=== PATIENT | female | born 2000 | race Two or more races ===

== ENCOUNTER 2020-05-01 10:55 | Emergency (ER) | payer OTHER, MEDICAID, SELFPAY ==
[2020-05-01 11:06] VITALS: PULSE 128; RESP 20; O2SAT 98; BMI 21.1
--- NOTE | 2020-05-01 11:36 | ED_ITS ---
HPI - Female Genitourinary General Chief complaint: Urogenital-Female Stated complaint: Vaginal pain Time Seen by Provider: 05/01/20 11:08 Source: patient Mode of arrival: ambulatory Limitations: no limitations History of Present Illness HPI Narrative: Patient tells me on April 19 she was seen by her OBGYN. She had a Pap smear and was tested for gonorrhea, chlamydia, HIV and syphilis. All of her testing was negative. The day after she noticed a lesion on her left labia. She had some mild discomfort. She has noticed over the past few days that she has had several other lesions located around the 1st lesion she noted. There is some discomfort. There is no burning. No vaginal discharge or vaginal pain or pelvic pain. No vomiting or diarrhea or urinary symptoms. Patient is sexually active 1 partner. She occasionally uses condoms. MD elicited complaint: genital rash Onset (ago): day(s) Location of symptoms: external genitalia Severity: mild Female Urogenital Radiation: Non-Radiating Vaginal discharge: none Vaginal bleeding: none Exacerbating factors: none Relieving factors: none Associated symptoms: denies other symptoms Treatment prior to arrival: none Sexual activity: Yes Patient : No Related Data Allergies Allergy/AdvReac Type Severity Reaction Status Date / Time No Known Allergies Allergy Unverified 02/25/20 17:23 [No Known Allergies*] Review of Systems Review of Systems: Yes all other systems are reviewed and are negative Constitutional: Constitutional: Reports no additional constitutional complaints, Denies body ache(s), Denies chills, Denies fever(s), Denies headache(s) and Denies weakness Eyes: Eyes: Reports no additional eye complaints and Denies change in vision ENT: Reports system reviewed and no additional complaints, except as documented, Denies dizziness, Denies headache(s), Denies nasal congestion, Denies nasal discharge and Denies neck pain Cardiovascular: Cardiovascular: Reports no additional cardiovascular complaints, Denies chest pain, Denies leg edema and Denies dyspnea Respiratory: Respiratory: Reports no additional respiratory complaints, Denies cough and Denies dyspnea Gastrointestinal: Gastrointestinal: Reports no additional gastrointestinal complaints, Denies abdominal pain, Denies diarrhea, Denies nausea and Denies vomiting Genitourinary: Genitourinary: Reports no additional female genitourinary complaints, Denies hematuria, Denies urinary frequency, Denies difficulty voiding, Denies genital pruritis, Reports genital lesions, Denies dysuria, Denies pelvic pain, Denies flank pain, Denies urinary incontinence, Denies urinary hesitancy, Denies urinary urgency, Denies vaginal discharge, Denies vaginal odor and Denies vaginal pruritus Musculoskeletal: Musculoskeletal: Reports no additional musculoskeletal complaints, Denies back pain, Denies arthralgias, Denies joint swelling, Denies neck pain, Denies numbness and Denies tingling Integumentary/Breasts: Skin/Breast: Reports system reviewed and no additional complaints, except as docu and Denies rash Neurologic: Reports system reviewed and no additional complaints, except as documented, Denies Abnormal speech present, Denies dizziness, Denies headache(s), Denies numbness, Denies tingling and Denies weakness PMFSH Past Medical History Attestation statement: The following information was validated with the patient. Source: obtained from family and nursing notes reviewed Social History Social History Advance Directives: No Advance Directives Information Provided: Yes Physical Exam Vital Signs: Vital Signs: Last Vital Signs Pulse 128 H 05/01/20 11:06 Resp 20 05/01/20 11:06 Pulse Ox 98 05/01/20 11:06 Body Mass Index 21.1 Const: General: cooperative and anxious ( Very anxious) Orientation/consciousness: patient oriented x3 Limitations: no limitations HENMT: Head: Yes normal to inspection Ears: hearing grossly normal bilaterally General nose exam: Normal external nose present Face and sinus: Yes normal facial exam Mouth: Normal oral and palatal mucosa present Throat: Yes posterior oropharynx normal Eyes: General: appearance normal, both eyes and all related structures Pupils: Equal, round and reactive pupils present Neck: Neck: Yes normal visual inspection Chest: Chest palpation & inspection: normal inspection of the chest Resp: Effort & Inspection: normal respiratory effort Auscultation: clear to auscultation bilaterally Cardio: Rate: regular rate Rhythm: regular rhythm Peripheral pulses: Peripheral pulses 2+ throughout GI: Inspection: Yes normal to inspection Palpation (GI): Soft to palpation and nontender Auscultation: normal bowel sounds : Other: Gris RN clinical business analyst present. Over the left labia majora there is a grouping of lesions whi are small, raised skin colored lesions which are very close together with some mild discomfort at the base Back/Spine/Pelvis: Thoracic/Lumbar Spine: thoracic and lumbar spine normal to inspection Skin: General skin exam: no rashes or lesions noted Neuro: General: patient oriented x3, no focal motor deficits and normal sensation to monofilament Cranial nerves: Yes Equal, round and reactive pupils present Cognition (Neuro): normal cognition Speech: No Abnormal speech present Gait exam (Neuro): Normal gait present Motor exam (neuro): 5/5 motor strength present throughout Extrem: General: Yes normal to inspection Course Course Course Narrative: Exam and HPI is not typical for HSV however patient has some discomfort over the lesions which is more concerning for HSV over genital warts. She was tested for syphilis/HIV/GC one day prior to when the first lesion was noted so I do not think it would be beneficial to re-test as the patient tells me she has not been sexually active since she noted the first lesion. HSV viral swab sent. Discussed with patient whether to treat prophylactically with antivirals or wait until test is resulted. Patient would like to wait and is aware we will call her with positive results and treatment may be started then. We discussed safe sex practices and follow-up with her MANAGER OF SOFTWARE outpatient. reviewed worrisome signs and symptoms and when to return to the emergency department. Comfortable discharge home. Discharge Plan Discharge Clinical Impression: Vaginal lesion Patient Disposition: Home, Self-Care Instructions: Normal Exam (ED) Additional Instructions: We have tested this lesion for herpes. We will have the results in 5-7 days and will call you. Do not have sex prior to this testing resulted. Motrin or tylenol for pain as needed Baths as discussed Interventions: ED Discharge Assessment Last Done: 05/01/20 11:58 Discharge Date/Time: 05/01/20 11:59
== END 2020-05-01 11:59 | disposition home or self-care (01) ==
PROVIDERS: Nurse Practitioner Family; Emergency Provider Emergency Medicine
DX: N76.0 Acute vaginitis (principal); Z20.2 Contact with and (suspected) exposure to infections with a predominantly sexual mode of transmission
CPT/HCPCS: 87255; 99283

== ENCOUNTER 2020-07-19 14:17 | Emergency (ER) | payer OTHER, MEDICAID, SELFPAY ==
[2020-07-19 14:18] VITALS: BP 130/70; PULSE 67; RESP 14; TEMP 36.8; O2SAT 99; BMI 21.1
--- NOTE | 2020-07-19 15:01 | PC.NURSE ---
A&0X3, AMBULATORY WITH STEADY GAIT, PT NOW STATES I THINK I HAVE A YEAST INFECTION BUT CAN I GET TESTED FOR EVERYTHING. RN ENCOURAGED PT TO SPEAK WITH PROVIDER RE: POC
[2020-07-19 15:26] LABS: Glucose Urine UA 100 MG/DL (NEG); Leukocyte Esterase Urine TRACE (NEG); Nitrite Urine NEG (NEG); PH 5.5 (5.0-8.0); Specific Gravity - Urine >= 1.030 (1.005-1.025); UACC Culture Trigger YES; Urine Blood 1+ (NEG); Urine Ketones 40 MG/DL (NEG); Urine Protein NEG (NEG-TRACE)
[2020-07-19 15:28] LABS: Appearance Urine CLEAR; Color Urine YELLOW
[2020-07-19 15:29] LABS: UPreg QC Valid YES; Urine Pregnancy NEGATIVE (NEGATIVE)
--- NOTE | 2020-07-19 15:32 | ED_ITS ---
HPI - Female Genitourinary General Chief complaint: Urogenital-Female Stated complaint: QUEST UTI Time Seen by Provider: 07/19/20 15:04 Source: patient Mode of arrival: ambulatory Limitations: no limitations History of Present Illness HPI Narrative: 20-year-old female here with complaints of thick white vaginal discharge with dysuria and urinary frequency x2 days. Also complaining of bilateral lower pelvic pain. No fevers, chills, nausea, vomiting. She is sexually active with one partner, uses condoms most of the time. MD elicited complaint: dysuria, UTI , vaginal discharge and pelvic pain Related Data Previous Rx's Medication Instructions Recorded valacyclovir [Valtrex] 1,000 mg PO BID #20 tab 05/05/20 fluconazole [Diflucan] 150 mg PO Q3D #2 tab 07/19/20 metronidazole [Flagyl] 500 mg PO BID #14 tab 07/19/20 Allergies Allergy/AdvReac Type Severity Reaction Status Date / Time No Known Allergies Allergy Verified 07/19/20 14:21 [No Known Allergies*] Review of Systems Review of Systems: Yes all other systems are reviewed and are negative Constitutional: Constitutional: Reports no additional constitutional complaints, Denies body ache(s), Denies chills, Denies fever(s), Denies headache (s) and Denies weakness Eyes: Eyes: Reports no additional eye complaints and Denies change in vision ENT: Reports system reviewed and no additional complaints, except as documented, Denies dizziness, Denies headache(s), Denies nasal congestion, Denies nasal discharge and Denies neck pain Cardiovascular: Cardiovascular: Reports no additional cardiovascular complaints, Denies chest pain, Denies leg edema and Denies dyspnea Respiratory: Respiratory: Reports no additional respiratory complaints, Denies cough and Denies dyspnea Gastrointestinal: Gastrointestinal: Reports no additional gastrointestinal complaints, Denies abdominal pain, Denies diarrhea, Denies nausea and Denies vomiting Genitourinary: Genitourinary: Reports no additional female genitourinary complaints, Reports dysuria, Reports pelvic pain, Denies urinary incontinence and Reports vaginal discharge Comments: Frequency Musculoskeletal: Musculoskeletal: Reports no additional musculoskeletal complaints, Denies back pain, Denies arthralgias, Denies joint swelling, Denies neck pain, Denies numbness and Denies tingling Integumentary/Breasts: Skin/Breast: Reports system reviewed and no additional complaints, except as docu and Denies rash Neurologic: Reports system reviewed and no additional complaints, except as documented, Denies Abnormal speech present, Denies dizziness, Denies headache(s), Denies numbness, Denies tingling and Denies weakness PMFSH Past Medical History Attestation statement: The following information was validated with the patient. Source: old records reviewed and nursing notes reviewed Social History Social History Advance Directives: No Advance Directives Information Provided: No Physical Exam Vital Signs: Vital Signs: Last Vital Signs Temp 98.3 F 07/19/20 14:18 Pulse 67 07/19/20 14:18 Resp 14 07/19/20 14:18 BP 130/70 07/19/20 14:18 Pulse Ox 99 07/19/20 14:18 Body Mass Index 21.1 Const: General: cooperative, healthy appearing, comfortable and no acute distress Orientation/consciousness: patient oriented x3 Limitations: no limitations HENMT: Head: Yes normal to inspection Ears: hearing grossly normal bilaterally General nose exam: Normal external nose present Face and sinus: Yes normal facial exam Mouth: Normal oral and palatal mucosa present Throat: Yes posterior oropharynx normal Eyes: General: appearance normal, both eyes and all related structures Pupils: Equal, round and reactive pupils present Neck: Neck: Yes normal visual inspection Chest: Chest palpation & inspection: normal inspection of the chest Resp: Effort & Inspection: normal respiratory effort Auscultation: clear to auscultation bilaterally Cardio: Rate: regular rate Rhythm: regular rhythm Peripheral pulses: Peripheral pulses 2+ throughout GI: Inspection: Yes normal to inspection Palpation (GI): Soft to palpation and nontender Auscultation: normal bowel sounds : Other: najma RN [employer] present External Female Exam: normal external appearance Speculum Exam - Vagina: abnormal vaginal discharge (thick, white) malodorous Speculum Exam - Cervix: normal appearance of the cervix and normal palpation Bimanual exam- vagina & uterus: normal bimanual exam and normal palpation Bimanual Exam- Adnexa, other: normal adnexae Back/Spine/Pelvis: Thoracic/Lumbar Spine: thoracic and lumbar spine normal to inspection Skin: General skin exam: no rashes or lesions noted Neuro: General: patient oriented x3, no focal motor deficits and normal sensation to monofilament Cranial nerves: Yes Equal, round and reactive pupils present Cognition (Neuro): normal cognition Speech: No Abnormal speech present Gait exam (Neuro): Normal gait present Motor exam (neuro): 5/5 motor strength present throughout Extrem: General: Yes normal to inspection Course Course Course Narrative: 20-year-old female here with urinary symptoms and vaginal discharge with reports of pelvic discomfort for the last 2 days. UA is negative for UTI. Pelvic exam is more consistent with bacterial vaginosis. No CMT or adnexal tenderness on exam. Abdomen soft and nontender. Patient would like to be tested for STDS but is not concerned about this. She believes she has a yeast infection. Treated presumptively with ceftriaxone IM. Will hold on doxycycline until further cultures return. Will send home with Meagan Able. Reviewed worrisome signs and symptoms and when to return to the emergency department. Comfortable discharge home. MDM - Female Genitourinary Medical Records Attestation: I reviewed the patient's medical records. Lab Data Attestation: I reviewed the patient's lab results. Labs: Lab Results 07/19/20 Range/Units 15:16 Urine Color YELLOW Urine Appearance CLEAR Urine pH 5.5 (5.0-8.0) Ur Specific [place] >= 1.030 H (1.005-1.025) Urine Protein NEG (NEG-TRACE) MG/DL Urine Glucose (UA) 100 H (NEG) MG/DL Urine Ketones 40 (NEG) MG/DL Urine Blood 1+ H (NEG) Urine Nitrite NEG (NEG) Ur Leukocyte Esterase TRACE H (NEG) Urine RBC 1-4 (0) /HPF Urine WBC 0-2 (0-4) /HPF Ur Squamous Epith Cells 2+ /LPF Urine Bacteria 1+ /LPF Urine Test NEGATIVE (NEGATIVE) Discharge Plan Discharge Clinical Impression: Bacterial vaginosis, Concern about STD in female without diagnosis Patient Disposition: Home, Self-Care Instructions: Bacterial Vaginosis (ED), Sexually Transmitted Diseases (ED) Additional Instructions: We have tested due for STDs. We will call you with the results of your STD testing as well as the results of your other swabs tomorrow if you are positive. We are treating you for presumed bacterial vaginosis. I have also prescribed dose of medication for yeast infection. Prescriptions: New metronidazole [Flagyl] 500 mg tablet 500 mg PO BID Qty: 14 RF: 0 fluconazole [Diflucan] 150 mg tablet 150 mg PO Q3D Qty: 2 RF: 0 No Action valacyclovir [Valtrex] 1 gram tablet 1,000 mg PO BID Qty: 20 RF: 0 Referrals: Physician,Unknown [Primary Care Provider] - 2 days Interventions: ED Discharge Assessment Last Done: 07/19/20 16:29 Discharge Date/Time: 07/19/20 16:30
[2020-07-19 15:35] LABS: Bacteria Urine 1+ /LPF; Squamous Epithelial Cell Urine 2+ /LPF; UACC CULT YES; WBC Urine 0-2 /HPF (0-4)
[2020-07-19] MEDS: metroNIDAZOLE 500 MG TABLET PO (16:17)
[2020-07-19] MEDS: cefTRIAXone sodium 500 MG, Lidocaine HCl 1 % MPF 1 ML IM (16:19)
[2020-07-20 09:56] LABS: BV Int Neg Control Negative (Negative); BV Int Pos Control Positive (Positive)
[2020-07-21 12:46] LABS: C. trachomatis RNA TMA NOT DETECTED (NOT DETECTED); N. gonorrhoeae RNA TMA NOT DETECTED (NOT DETECTED)
== END 2020-07-19 16:30 | disposition home or self-care (01) ==
PROVIDERS: Nurse Practitioner Family; Emergency Provider Emergency Medicine Emergency Medical Services
DX: N76.0 Acute vaginitis (principal); R30.0 Dysuria; Z20.2 Contact with and (suspected) exposure to infections with a predominantly sexual mode of transmission; Z79.899 Other long term (current) drug therapy
CPT/HCPCS: 36415; 81001; 81025; 87086; 87480; 87491; 87510; 87591; 87660; 96372; 99283; 99284; J0696

== ENCOUNTER 2021-01-31 08:13 | Emergency (ER) | payer OTHER, MEDICAID, SELFPAY ==
[2021-01-31 09:42] VITALS: BP 119/86; PULSE 70; RESP 16; TEMP 36.6; O2SAT 100; BMI 19.7
--- NOTE | 2021-01-31 10:05 | ED.GENADULT ---
HPI - General Adult General Chief complaint: General Medical Stated complaint: burn lt ankle, multiple complaints Time Seen by Provider: 01/31/21 10:03 History of Present Illness HPI narrative: Patient with 2 complaints First complaint is of burn to the right inner lower leg Other complaint is intermittent vaginal bleeding for 2 and half weeks from 1-4 pads a day, with intermittent crampy pain, no dizziness no weakness no abdominal pain now Related Data Previous Rx's Medication Instructions Recorded valacyclovir 1 gram tablet 1,000 mg PO BID #20 tab 05/05/20 (Valtrex) fluconazole 150 mg tablet 150 mg PO Q3D #2 tab 07/19/20 (Diflucan) metronidazole 500 mg tablet 500 mg PO BID #14 tab 07/19/20 (Flagyl) ibuprofen 600 mg tablet 600 mg PO Q6H PRN #20 tab 01/31/21 silver sulfadiazine 1 % topical 1 appl TOPICAL BID 7 Days #50 g 01/31/21 cream (Silvadene) Allergies Allergy/AdvReac Type Severity Reaction Status Date / Time No Known Allergies Allergy Verified 07/19/20 14:21 [No Known Allergies*] Review of Systems Review of Systems: Positive for vaginal bleeding as well as a burn to the right lower leg Negatives are no fever no chills no dizziness weakness no fainting no feeling faint no headache no neck pain no chest pain no shortness of breath no abdominal pain no nausea vomiting or diarrhea, no other bleeding no skin rashes Yes all other systems are reviewed and are negative PMF Past Medical History Source: nursing notes reviewed Medical History (Updated 01/31/21 @ 12:11 by MATTEO Conti) No known health problems Social History Social History Advance Directives: Yes Advance Directives Information Provided: Yes Advance Directives on File: No Patient : No Physical Exam Vital Signs: Vital Signs: Last Vital Signs Temp 97.8 F 01/31/21 11:51 Pulse 71 01/31/21 11:51 Resp 16 01/31/21 11:51 BP 103/59 L 01/31/21 11:51 Pulse Ox 99 01/31/21 11:51 Body Mass Index 19.7 General appearance is no acute distress Head is normocephalic atraumatic The eyes no pallor Neck is supple Chest no respiratory distress Abdomen is soft nontender no rebound no guarding Back no CVA tenderness Extremities left inner lower leg has a 2 cm tightness 2 cm patch of mixed 1st and second-degree burn, there is no deeper burn, there is full range of motion in knee and ankle and she is walking easily, there is no surrounding redness or tenderness or swelling, there is no discharge from the were Skin no petechiae no purpura Course Course Course Narrative: Lab testing did not show any anemia, hemoglobin was 13 and he hematocrit was 39, test was negative, urinalysis was negative, patient is well-appearing and will follow for vaginal bleeding with blind installer For the burn antibiotic cream is applied, there was no sign of infection and she will return any time if worse Medical Decision Making Lab Data Result diagrams: 01/31/21 10:18 Labs: Lab Results 01/31/21 01/31/21 01/31/21 Range/Units 10:15 10:15 10:18 WBC (4.8-10.8) X10*3/uL RBC (4.20-5.50) X10*6/uL Hgb (12.0-16.0) g/dl Hct (37-47) % MCV (80-98) fL MCH (27.0-33.0) pg MCHC (31.0-35.0) g/dl RDW (11.0-16.0) % Plt Count (160-400) X10*3/uL MPV (9.4-12.3) fL Immature Gran % (Auto) (0.0-0.4) % Neut % (Auto) (45-73) % Lymph % (Auto) (20-40) % [place] % (Auto) (2-11) % Eos % (Auto) (0-4) % Baso % (Auto) (0-2) % Lymph # (Auto) (1.2-4.9) X10*3/uL [place] # (Auto) (0.1-1.2) X10*3/uL Eos # (Auto) (0.0-0.4) X10*3/uL Baso # (Auto) (0.0-0.2) X10*3/uL Abs Immat Gran (auto) (0.00-0.03) X10*3/uL Absolute Neuts (auto) (2.0-8.3) X10*3/uL Absolute Nucleated RBC (0.0-0.012) X10*3/uL Nucleated RBC % (auto) (0.0-0.2) /100WBC Smear Tech's Comments Beta HCG, Quant < 2 mIU/mL Urine Color YELLOW Urine Appearance CLEAR Urine pH 6.5 (5.0-8.0) Ur Specific [place] 1.025 (1.005-1.025) Urine Protein NEG (NEG-TRACE) MG/DL Urine Glucose (UA) NEG (NEG) MG/DL Urine Ketones NEG (NEG) MG/DL Urine Blood 1+ H (NEG) Urine Nitrite NEG (NEG) Ur Leukocyte Esterase NEG (NEG) Urine RBC 0-2 (0) /HPF Urine WBC 0-2 (0-4) /HPF Ur Squamous Epith Cells 1+ /LPF Urine Bacteria NONE /LPF Urine Mucus TRACE /LPF Urine Test NEGATIVE (NEGATIVE) 01/31/21 Range/Units 10:18 WBC 13.3 H (4.8-10.8) X10*3/uL RBC 4.14 L (4.20-5.50) X10*6/uL Hgb 13.0 (12.0-16.0) g/dl Hct 39.8 (37-47) % MCV 96.1 (80-98) fL MCH 31.4 (27.0-33.0) pg MCHC 32.7 (31.0-35.0) g/dl RDW 13.2 (11.0-16.0) % Plt Count 221 (160-400) X10*3/uL MPV 11.3 (9.4-12.3) fL Immature Gran % (Auto) 0.3 (0.0-0.4) % Neut % (Auto) 68.4 (45-73) % Lymph % (Auto) 18.6 L (20-40) % [place] % (Auto) 12.0 H (2-11) % Eos % (Auto) 0.5 (0-4) % Baso % (Auto) 0.2 (0-2) % Lymph # (Auto) 2.5 (1.2-4.9) X10*3/uL [place] # (Auto) 1.6 H (0.1-1.2) X10*3/uL Eos # (Auto) 0.1 (0.0-0.4) X10*3/uL Baso # (Auto) 0.0 (0.0-0.2) X10*3/uL Abs Immat Gran (auto) 0.04 H (0.00-0.03) X10*3/uL Absolute Neuts (auto) 9.1 H (2.0-8.3) X10*3/uL Absolute Nucleated RBC 0.000 (0.0-0.012) X10*3/uL Nucleated RBC % (auto) 0.0 (0.0-0.2) /100WBC Smear Tech's Comments VERIFIED Beta HCG, Quant mIU/mL Urine Color Urine Appearance Urine pH (5.0-8.0) Ur Specific [place] (1.005-1.025) Urine Protein (NEG-TRACE) MG/DL Urine Glucose (UA) (NEG) MG/DL Urine Ketones (NEG) MG/DL Urine Blood (NEG) Urine Nitrite (NEG) Ur Leukocyte Esterase (NEG) Urine RBC (0) /HPF Urine WBC (0-4) /HPF Ur Squamous Epith Cells /LPF Urine Bacteria /LPF Urine Mucus /LPF Urine Test (NEGATIVE) Discharge Plan Discharge Clinical Impression: Vaginal bleeding, Burn Patient Disposition: Home, Self-Care Additional Instructions: Are testing did not show any anemia or any dangerous blood loss Follow with blind installer for further evaluation of irregular vaginal bleeding Return any time for dizziness weakness pain any worse condition or any concerns For the burn on the leg apply antibiotic ointment twice a day, it does not look infected now and it should heal up on its own Return any time for increased pain, spreading redness, any sign of infection any concerns You got a tetanus shot today Prescriptions: New silver sulfadiazine [Silvadene] 1 % cream 1 appl topical BID 7 Days Qty: 50 RF: 0 ibuprofen 600 mg tablet 600 mg PO Q6H PRN (Reason: pain) Qty: 20 RF: 0 No Action valacyclovir [Valtrex] 1 gram tablet 1,000 mg PO BID Qty: 20 RF: 0 metronidazole [Flagyl] 500 mg tablet 500 mg PO BID Qty: 14 RF: 0 fluconazole [Diflucan] 150 mg tablet 150 mg PO Q3D Qty: 2 RF: 0 Referrals: Harshal Dwyer MD [Physician] - 2 days (Irregular bleeding) Stand Alone Forms: Work/School Release
[2021-01-31 10:39] LABS: Basophils Percent Auto 0.2 % (0-2); Eosinophils Absolute Auto 0.1 X10*3/uL (0.0-0.4); Eosinophils Percent Auto 0.5 % (0-4); Hematocrit 39.8 % (37-47); Imm Gran Abs Auto 0.04 X10*3/uL (0.00-0.03); Imm Gran Pct Auto 0.3 % (0.0-0.4); Lymphocytes Absolute Auto 2.5 X10*3/uL (1.2-4.9); Lymphocytes Percent Auto 18.6 % (20-40); MANUAL DIFF FLAG SCAN; Mean Corpuscular HGB Conc 32.7 g/dl (31.0-35.0); Mean Corpuscular Hemoglobin 31.4 pg (27.0-33.0); Mean Corpuscular Volume 96.1 fL (80-98); Mean Platelet Volume 11.3 fL (9.4-12.3); Monocytes Absolute Auto 1.6 X10*3/uL (0.1-1.2); Neutrophils Absolute Auto 9.1 X10*3/uL (2.0-8.3); Neutrophils Percent Auto 68.4 % (45-73); Platelet Count 221 X10*3/uL (160-400); Red Blood Count 4.14 X10*6/uL (4.20-5.50); Red Cell Distribution Width 13.2 % (11.0-16.0); SCAN SMEAR FLAG 1; White Blood Count 13.3 X10*3/uL (4.8-10.8)
[2021-01-31] MEDS: Silver Sulfadiazine 1 % Cream 20 GM TUBE 1 APPL TOPICAL (10:41)
[2021-01-31] MEDS: Diphth,Pertus(ACell),Tet Adult 0.5 ML SYRINGE IM (10:41)
[2021-01-31 10:59] LABS: Glucose Urine UA NEG (NEG); Leukocyte Esterase Urine NEG (NEG); Nitrite Urine NEG (NEG); PH 6.5 (5.0-8.0); Specific Gravity - Urine 1.025 (1.005-1.025); UACC Culture Trigger NO; Urine Blood 1+ (NEG); Urine Ketones NEG (NEG); Urine Protein NEG (NEG-TRACE)
[2021-01-31 10:59] LABS: HCG Quantitative < 2 mIU/mL
[2021-01-31 11:02] LABS: Appearance Urine CLEAR; Color Urine YELLOW; UPreg QC Valid YES; Urine Pregnancy NEGATIVE (NEGATIVE)
[2021-01-31 11:15] LABS: SLIDE REVIEW VERIFIED
[2021-01-31 11:20] LABS: Mucus Urine TRACE /LPF; RBC Urine 0-2 /HPF (0); Squamous Epithelial Cell Urine 1+ /LPF; WBC Urine 0-2 /HPF (0-4)
[2021-01-31 11:51] VITALS: BP 103/59; PULSE 71; RESP 16; TEMP 36.6; O2SAT 99
[2021-01-31 13:49] LABS: CT PCR DETECTED (Not Detect.); NG PCR NOT DETECTED (Not Detect.)
== END 2021-01-31 12:24 | disposition home or self-care (01) ==
PROVIDERS: Physician Assistant Medical; Emergency Provider Emergency Medicine
DX: T24.202A Burn of second degree of unspecified site of left lower limb, except ankle and foot, initial encounter (principal); T31.0 Burns involving less than 10% of body surface; N93.9 Abnormal uterine and vaginal bleeding, unspecified; A74.9 Chlamydial infection, unspecified
CPT/HCPCS: 17250; 36415; 81001; 81003; 81025; 84702; 85025; 87491; 87591; 90471; 90715; 99284

== ENCOUNTER 2021-02-14 13:38 | Outpatient (REF) | payer MEDICAID, SELFPAY | END 2021-02-14 13:39 | disposition home or self-care (01) | LOC: HO.LAB 13:38 | PROVIDERS: Visit Provider Internal Medicine | DX: Z20.822 Contact with and (suspected) exposure to COVID-19 (principal) | CPT/HCPCS: C9803; U0003; U0005 ==

== ENCOUNTER 2022-01-05 09:09 | Emergency (ER) | payer MEDICAID, SELFPAY ==
[2022-01-05 09:31] VITALS: BP 118/79; PULSE 86; RESP 18; TEMP 36.8; O2SAT 100; BMI 21.1
--- NOTE | 2022-01-05 11:45 | ED.WOUNDLAC ---
HPI - Wound/Laceration General Chief Complaint: Wound/Laceration Stated Complaint: lac. on knee Time Seen by Provider: 01/05/22 10:47 History of Present Illness HPI narrative: Patient complains of laceration to her right knee after falling 10 hours ago while running, there is no joint swelling there is no difficulty walking although she is limping a little bit, no other injury no other complaint Related Data Previous Rx's Medication Instructions Recorded valacyclovir 1 gram tablet 1,000 mg PO BID #20 tabs 05/05/20 (Valtrex) fluconazole 150 mg tablet 150 mg PO Q3D 2 doses #2 tabs 07/19/20 (Diflucan) metronidazole 500 mg tablet 500 mg PO BID #14 tabs 07/19/20 (Flagyl) ibuprofen 600 mg tablet 600 mg PO Q6H PRN pain #20 tabs 01/31/21 silver sulfadiazine 1 % topical 1 appl topical BID 7 days #50 grams 01/31/21 cream (Silvadene) doxycycline hyclate 100 mg capsule 100 mg PO BID 7 days #14 caps 02/02/21 Allergies Allergy/AdvReac Type Severity Reaction Status Date / Time No Known Allergies Allergy Verified 07/19/20 14:21 [No Known Allergies*] Review of Systems Review of Systems: Positive for right knee laceration Negatives are no fever no chills no dizziness no weakness no fainting no feeling faint no headache no neck pain no back pain no chest pain no rib pain no other extremity pain or injury Yes all other systems are reviewed and are negative PMFSH Past Medical History Source: nursing notes reviewed Medical History (Updated 01/06/22 @ 00:02 by Eduarda Weaver) No known health problems Social History Social History Advance Directives: No Advance Directives Information Provided: No Physical Exam Vital Signs: Vital Signs: Last Vital Signs Temp 98.3 F 01/05/22 09:31 Pulse 86 01/05/22 09:31 Resp 18 01/05/22 09:31 BP 118/79 01/05/22 09:31 Pulse Ox 100 01/05/22 09:31 O2 Del Method 01/05/22 09:31 BMI result Body Mass Index 21.1 General appearance no distress Head is normocephalic atraumatic Neck is supple nontender Respiratory no distress The back full range of motion Extremities full range of motion x4 including right knee which has a 2.5 cm laceration anterior, there is full range of motion no swelling, no surrounding erythema, neurovascular intact distal, other extremities normal Course Course Course Narrative: Procedure note 2.5 cm right knee laceration is cleansed and irrigated with normal saline, no foreign body identified, 4-0 nylon sutures were placed, wound was closed and bandage was applied Discharge Plan Discharge Clinical Impression: Laceration Patient Disposition: Home, Self-Care Additional Instructions: Stitches out in 7-10 days You can do this at your primary care doctor or return to the ER as needed Return any time for redness swelling any sign of infection any concerns Prescriptions: No Action valacyclovir [Valtrex] 1 gram tablet 1,000 mg PO BID Qty: 20 0RF metronidazole [Flagyl] 500 mg tablet 500 mg PO BID Qty: 14 0RF fluconazole [Diflucan] 150 mg tablet 150 mg PO Q3D Qty: 2 0RF silver sulfadiazine [Silvadene] 1 % cream 1 appl topical BID 7 Days Qty: 50 0RF Rx Instructions: apply a 1.5 mm thickness ibuprofen 600 mg tablet 600 mg PO Q6H PRN (Reason: pain) Qty: 20 0RF doxycycline hyclate 100 mg capsule 100 mg PO BID 7 Days Qty: 14 0RF Interventions: ED Discharge Assessment Last Done: 01/05/22 11:52 Discharge Date/Time: 01/05/22 11:54
[2022-01-05] MEDS: Lidocaine HCl 1 % MPF 5 ML VIAL SUBCUT ×2 (11:52)
== END 2022-01-05 11:54 | disposition home or self-care (01) ==
PROVIDERS: Emergency Provider Student in an Organized Health Care Education/Training Program
DX: S81.011A Laceration without foreign body, right knee, initial encounter (principal); W01.0XXA Fall on same level from slipping, tripping and stumbling without subsequent striking against object, initial encounter; Y93.02 Activity, running; Y92.481 Parking lot as the place of occurrence of the external cause; Y99.9 Unspecified external cause status
CPT/HCPCS: 12001; 99282; 99284

== ENCOUNTER 2022-01-17 15:25 | Emergency (ER) | payer MEDICAID, SELFPAY | END 2022-01-17 18:24 | disposition left against medical advice (07) | PROVIDERS: Emergency Provider Emergency Medicine | DX: Z48.02 Encounter for removal of sutures (principal) ==

== ENCOUNTER 2023-02-27 08:05 | Outpatient (REF) | payer MEDICAID, SELFPAY ==
[2023-02-28 17:49] LABS: CT PCR NOT DETECTED (Not Detect.); NG PCR NOT DETECTED (Not Detect.)
[2023-03-01 14:15] LABS: BV Int Neg Control Negative (Negative); BV Int Pos Control Positive (Positive)
== END 2023-02-27 08:06 | disposition home or self-care (01) ==
LOC: HO.HHCLNP 08:05
PROVIDERS: Visit Provider Registered Nurse
DX: N89.8 Other specified noninflammatory disorders of vagina (principal)
CPT/HCPCS: 0353U; 87086; 87480; 87510; 87660

== ENCOUNTER 2024-12-01 07:05 | Emergency (ER) | payer MEDICAID, SELFPAY ==
--- NOTE | ~2024-12-01 | US_ITS ---
EXAMINATION: US PELVIS HISTORY: pelvic pain, recent IUD placement COMPARISON: Comparison is made with the prior examination dated 06/20/2017. TECHNIQUE: Transabdominal real-time 2D bailey-scale ultrasound was performed. The patient declined endovaginal examination. FINDINGS: Uterus: The uterus is normal in size, measuring 8.4 x 4.5 x 6.0 cm. Myometrium has a normal echotexture. No fibroids are identified. Endometrium: The endometrial stripe is obscured by the presence of an IUD which appears in appropriate position. Right ovary: The right ovary measures 4.7 x 3.3 x 3.5 cm. There is a 3.0 x 3.1 x 2.7 cm right ovarian cyst. Left ovary: The left ovary measures 2.7 x 2.0 x 2.6 cm. The left ovary is normal in size and echotexture. Pelvic fluid: none. US/US pelvic complete IMPRESSION: 1. IUD in appropriate position in the endometrial cavity. 2. 3.0 x 3.1 x 2.7 cm right ovarian cyst. Electronically signed by: Jose Duque MD 12/01/2024 10:14 AM EDT
--- NOTE | 2024-12-01 07:55 | ED_ITS ---
HPI - General Adult General Chief complaint: Abdominal Pain Stated complaint: iud rejection Time Seen by Provider: 12/01/24 07:55 History of Present Illness ED Provider: Terri ROSE narrative: The patient is a 24-year-old female who [facility] She says that she had significant discomfort for 2 or 3 days after placement of the device. She also says that she has had ongoing vaginal bleeding since the device. She has had 2 menstrual periods since the placement of the device and she has found them more uncomfortable than usual. She says that she stopped having any vaginal bleeding 2 or 3 days ago but has had significant worsening cramping in her pelvis over the last 2 or 3 days instead. She comes to the emergency room today because of this worsening cramping. She has a sensation that her body is rejecting the device. No fevers. Related Data Previous Rx's ?Medication ?Instructions ?Recorded valacyclovir 1 gram tablet 1,000 mg PO BID #20 tabs (Valtrex) fluconazole 150 mg tablet 150 mg PO Q3D 2 doses #2 tab s 07/19/20 (Diflucan) metronidazole 500 mg tablet 500 mg PO BID #14 tabs 02/28 (Flagyl) ibuprofen 600 mg tablet 600 mg PO Q6H PRN pain #20 t abs 01/31/21 silver sulfadiazine 1 % topical 1 appl topical BID 7 d ays #50 grams 01/31/21 cream (Silvadene) doxycycline hyclate 100 mg capsule 100 mg PO BID 7 day s #14 caps 02/02/21 acetaminophen 500 mg capsule 1,000 mg (2 x 500 mg) PO Q8H PRN 12/01/24 fever or pain #14 caps ibuprofen 400 mg tablet 400 mg PO Q6H PRN pain #14 t abs 12/01/24 Allergies Allergy/AdvReac Type Severity Reaction Status Date / Time No Known Allergies (No Known Allergy Verified 12/01/24 08:16 Allergies*) Review of Systems 2 Review of Systems: Yes all other systems are reviewed and are negative [facility] Past Medical History Medical History (Updated 12/02/24 @ 00:01 by Eduarda Weaver) No known health problems Social History Social History Smoked in Last 30 Days: No Use of substances other than those prescribed or required for medical reasons: Yes Substance Use Type: Marijuana Advance Directives: No Advance Directives Information Provided: No Patient : No Physical Exam ED Vital Signs: Vital Signs - 24 hr 12/01/24 08:09 Temperature 98.1 F Pulse Rate 65 Respiratory Rate 16 Pulse Oximetry 100 Oxygen Delivery Method Room Air BMI result Body Mass Index 20.9 Const Other: The patient is a thin young woman who looks mildly uncomfortable. She does not seem toxic. HENMT Other: The face is symmetrical. ?Mucous membranes moist. Eyes Other: Pupils are round equal, conjunctivae are clear, extraocular movements intact Neck Neck: Yes normal visual inspection and Yes full ROM Resp Effort & Inspection: normal respiratory effort Auscultation: clear to auscultation bilaterally Cardio Rate: regular rate Rhythm: regular rhythm Heart sounds: S1 normal heart sound present and S2 normal heart sound present GI Other: The abdomen was flat, soft, and nontender. I did not feel she had any significant tenderness even with the palpation quite deep in the lower abdomen. Other: The patient deferred a pelvic exam Skin Other: Skin was dry and unremarkable Neuro Other: The patient was awake and alert with a normal mental status. Cranial nerves were intact. She moves her extremities normally and appropriately. Extrem Other: There is no calf swelling or tenderness. No asymmetry. No peripheral edema. Medications Administered Discontinued Medications Generic Name Dose Route Start Last Admin Trade Name Freq PRN Reason Stop Dose Admin Ketorolac Tromethamine 20 mg 12/01/24 08:01 12/01/24 08:09 Ketorolac Tromethamine 30 Mg/Ml Vial IM 12/01/24 08:02 20 mg ONCE ONE Administration Medical Decision Making Medical Decision Making [facility] Narrative: The patient is a 24-year-old female who [facility] She says that since placement of the IUD she has had some menstrual periods but she says that she had persistent low-grade bleeding constantly since placement of the IUD until just 2 or 3 days ago. She has also had pelvic cramping that has been worse over the last few days that she attributes to the IUD. She worries that the IUD may be misplaced or that her body might be ?rejecting? the IUD. She denies having any vaginal discharge other than the vaginal bleeding. She did not wish to have a pelvic exam and does not wish to have testing for possible STI. The patient had an ultrasound of the pelvis (transabdominal only) which showed good placement of the IUD. There was also a right-sided ovarian cyst. She had a white count of 18.6 but she has an undetectable CRP. Other labs are unremarkable. test is negative. The patient was given an injection of IM ketorolac with significant improvement in her pain. She was offered a pelvic exam but she did not wish to have a pelvic exam. She was offered STI testing by urine sample and self swabs but she did not wish to do this either. She felt considerably better following the ketorolac and was comfortable being discharged with a prescription for ibuprofen. She was given the contact information for [facility]. She should follow up there or [facility] She should return if she feel significantly worse. Lab Data 12/01/24 08:24 12/01/24 08:24 Labs: Lab Results 12/01/24 Range/Units 08:24 WBC 18.6 H (4.8-10.8) X10*3/uL RBC 3.95 L (4.20-5.50) X10*6/uL Hgb 12.1 (12.0-16.0) g/dl Hct 36.6 L (37.0-47.0) % MCV 92.7 (80.0-98.0) fL MCH 30.6 (27.0-33.0) pg MCHC 33.1 (31.0-35.0) g/dl RDW 13.1 (11.0-16.0) % Plt Count 228 (160-400) X10*3/uL MPV 11.0 (9.4-12.3) fL Immature Gran % (Auto) 0.4 (0.0-0.4) % Neut % (Auto) 85.2 H (45-73) % Lymph % (Auto) 6.9 L (20-40) % [place] % (Auto) 6.5 (2-11) % Eos % (Auto) 0.8 (0-4) % Baso % (Auto) 0.2 (0-2) % Lymph # (Auto) 1.3 (1.2-4.9) X10*3/uL [place] # (Auto) 1.2 (0.1-1.2) X10*3/uL Eos # (Auto) 0.2 (0.0-0.4) X10*3/uL Baso # (Auto) 0.0 (0.0-0.2) X10*3/uL Abs Immat Gran (auto) 0.07 H (0.00-0.03) X10*3/uL Absolute Neuts (auto) 15.9 H (2.0-8.3) x10*3/uL Absolute Nucleated RBC 0.000 (0.0-0.012) X10*3/uL Nucleated RBC % (auto) 0.0 (0.0-0.2) /100WBC Sodium 138 (135-145) mmol/L Potassium 3.7 (3.3-5.1) mmol/L Chloride 109 H (96-108) mmol/L Carbon Dioxide 22 (22-29) mmol/L Anion Gap 11 L (12-20) BUN 11 (9-16) mg/dL Creatinine 0.64 (0.5-1.4) mg/dL Estim Creat Clear Calc 129.6 Estimated GFR > 60 Random Glucose 96 (60-115) mg/dL Calcium 8.7 (8.4-10.2) mg/dL Total Bilirubin 0.5 (0.0-1.0) mg/dL Direct Bilirubin 0.1 (0.0-0.5) mg/dL AST 14 (5-31) U/L ALT 9 (0-31) U/L Alkaline Phosphatase 49 (39-117) U/L C-Reactive Protein < 0.04 (< or = 0.50) mg/dL Total Protein 6.5 (6.5-8.0) g/dL Albumin 4.2 (3.5-5.0) g/dL Lipase 11 (8-78) U/L Beta HCG, Quant < 2 mIU/mL Discharge Plan Discharge Clinical Impression: Pelvic cramping, IUD (intrauterine device) in place Patient Disposition: Home, Self-Care Additional Instructions: The ultrasound shows that your IUD is in appropriate position. You have a cyst on your right ovary but I do not think this cyst is causing the symptoms you has been experiencing. Please use the ibuprofen in the acetaminophen prescribed as needed for pain. Please try to [facility] or also you may try to contact the [facility] for a follow up appointment to discuss the symptoms you has been experiencing with regard to your IUD. If you feel significantly worse, especially if you develop fever or vaginal discharge, nausea or vomiting, or worsening pain, please return to the emergency room. Prescriptions: New ibuprofen 400 mg tablet 400 mg PO Q6H PRN (Reason: pain) Qty: 14 0RF acetaminophen 500 mg capsule 1,000 mg PO Q8H PRN (Reason: fever or pain) Qty: 14 0RF No Action valacyclovir [Valtrex] 1 gram tablet 1,000 mg PO BID Qty: 20 0RF metronidazole [Flagyl] 500 mg tablet 500 mg PO BID Qty: 14 0RF fluconazole [Diflucan] 150 mg tablet 150 mg PO Q3D Qty: 2 0RF silver sulfadiazine [Silvadene] 1 % cream 1 appl topical BID 7 Days Qty: 50 0RF Rx Instructions: apply a 1.5 mm thickness ibuprofen 600 mg tablet 600 mg PO Q6H PRN (Reason: pain) Qty: 20 0RF doxycycline hyclate 100 mg capsule 100 mg PO BID 7 Days Qty: 14 0RF Referrals: [facility] [Provider Group] Nelly Diggs CNP [Nurse Practitioner, [employer] SERVICES ANALYST] Stand Alone Forms: Work/School Release Interventions: ED Discharge Assessment Last Done: 12/01/24 12:04 Discharge Date/Time: 12/01/24 12:05 Print Language: Lithuanian
[2024-12-01 08:09] VITALS: PULSE 65; RESP 16; TEMP 36.7; O2SAT 100; BMI 20.9
[2024-12-01] MEDS: Ketorolac Tromethamine 30 MG/ML VIAL 20 MG IM (08:09)
[2024-12-01 08:32] LABS: MANUAL DIFF FLAG NO
--- OUTSIDE RECORDS SUMMARY | 2024-12-01 08:32 | XMS_ITS | Encounter Summary ---
Author Organization [employer] Address [address] [place] [address] Care Team Providers Care Pigment And Lacquer Mixer Name Role Phone Skip Keen Primary Care Provider Unavail able Lauren Lora MD Primary Care Provide r Adele Alvarez NP Primary Care Provider [phone] Reason for Visit * Reason Onset Date Comments triage 06/07/2022 Encounter Details Date Type Department Care Team ([facility] st Contact Info) Description 06/07/2022 Telephone [facility]INE [address] [place] [address] Skip Keen AGNP triage Social History Tobacco Use Types Packs/Day Years Used Date Smoking Tobacco: Never Smokeless Tobacco: Never Alcohol Use Standard Drinks/Week Comments Yes 0 (1 standard drink = 0.6 oz pur e alcohol) Comments Unknown Sex and Gender Information Value Date Recorded Sex Assigned at Female 04/09/2022 10:18 AM EDT Legal Sex Female 10:18 AM EDT Gender Identity Female 04/09/2022 10:18 AM EDT Sexual Orientation Straight 04/09/2022 10 :18 AM EDT COVID-19 Exposure Response Date Recorded In the last 10 days, have yo u been in contact with someone who was confirmed or suspected to have Coronavirus/COVID-19? No / Unsure 05/18/2022 3:03 PM EST documented as of this encounter Miscellaneous Notes * Telephone Encounter - Margie Suárez RN - 06/07/2022 2:00 PM EST Triage call Pt reports possible UTI . Pt has been experiencing frequency, slight burning. Neg for fever, flank pain, odor. Second day of these symptoms. Pt is advised to come to [facility] to be seen . [facility] doesn't want to wait or come back for appt. Pt advised to seek evaluation in ED if needed. Increase liquid intake advised as well. Protocol Used: Urinary Symptoms (Adult) Protocol-Based Disposition: See in Office or Video Visit Today Video visit not offered Positive Triage Question: * Urinating more frequently than usual (i.e., frequency) * All higher-acuity triage questions were negative Care Advice Discussed: * Reasons To Call Back - Fever occurs - Pain or burning with urination - Unable to urinate and bladder feels full - You become worse * Telephone Encounter - Yg Yip - 06/07/2022 12:42 PM EST Symptom: Urination Pain Outcome: Schedule a same-day appointment or talk to a nurse or provider today Reason: No high acuity concerns reported by caller The caller accepted this outcome documented in this encounter Plan of Treatment Not on file documented as of this encounter Visit Diagnoses Not on filedocumented in this encounter Care Teams Pigment And Lacquer Mixer Relationship Specialty Start Date End Date Skip Keen AGNP PCP - General Family Medicine 03/16/22 02/17/23 Lauren Lora MD [address] [place] [address] PCP - General Internal Medicine 02/18/23 06/30/23 Adele Alvarez NP [address] [place] [address] PCP - General Family Medicine 07/05/23 05/31/24 documented as of this encounter
[2024-12-01 08:34] LABS: Basophils Percent Auto 0.2 % (0-2); Eosinophils Absolute Auto 0.2 X10*3/uL (0.0-0.4); Eosinophils Percent Auto 0.8 % (0-4); Hematocrit 36.6 % (37.0-47.0); Hemoglobin 12.1 g/dl (12.0-16.0); Imm Gran Abs Auto 0.07 X10*3/uL (0.00-0.03); Imm Gran Pct Auto 0.4 % (0.0-0.4); Lymphocytes Absolute Auto 1.3 X10*3/uL (1.2-4.9); Lymphocytes Percent Auto 6.9 % (20-40); Mean Corpuscular HGB Conc 33.1 g/dl (31.0-35.0); Mean Corpuscular Hemoglobin 30.6 pg (27.0-33.0); Mean Corpuscular Volume 92.7 fL (80.0-98.0); Monocytes Absolute Auto 1.2 X10*3/uL (0.1-1.2); Monocytes Percent Auto 6.5 % (2-11); Neutrophils Absolute Auto 15.9 x10*3/uL (2.0-8.3); Neutrophils Percent Auto 85.2 % (45-73); Platelet Count 228 X10*3/uL (160-400); Red Blood Count 3.95 X10*6/uL (4.20-5.50); Red Cell Distribution Width 13.1 % (11.0-16.0); White Blood Count 18.6 X10*3/uL (4.8-10.8)
[2024-12-01 09:04] LABS: Alanine Aminotransferase 9 U/L (0-31); Albumin Level 4.2 g/dL (3.5-5.0); Alkaline Phosphatase 49 U/L (39-117); Anion Gap 11 (12-20); Aspartate Amino Transferase 14 U/L (5-31); Bilirubin Direct 0.1 mg/dL (0.0-0.5); Bilirubin Total 0.5 mg/dL (0.0-1.0); Blood Urea Nitrogen 11 mg/dL (9-16); Calcium 8.7 mg/dL (8.4-10.2); Carbon Dioxide 22 mmol/L (22-29); Chloride 109 mmol/L (96-108); Creatinine Clr Calc Pharmacy 129.6; Estimated Glomerular Filt Rate > 60; Glucose Random 96 mg/dL (60-115); Lipase 11 U/L (8-78); Potassium 3.7 mmol/L (3.3-5.1); Sodium 138 mmol/L (135-145); Total Protein 6.5 g/dL (6.5-8.0)
[2024-12-01 09:08] LABS: HCG Quantitative < 2 mIU/mL
[2024-12-01 09:40] LABS: C Reactive Protein < 0.04 mg/dL (< or = 0.50)
[2024-12-01 12:04] VITALS: BP 104/57; PULSE 74; RESP 16; TEMP 36.7; O2SAT 99
== END 2024-12-01 12:05 | disposition home or self-care (01) ==
PROVIDERS: Emergency Provider Emergency Medicine
DX: T83.84XA Pain due to genitourinary prosthetic devices, implants and grafts, initial encounter (principal); R10.2 Pelvic and perineal pain; Y82.8 Other medical devices associated with adverse incidents
CPT/HCPCS: 36415; 76856; 80048; 80076; 83690; 84702; 85025; 86140; 96372; 99284; J1885

== ENCOUNTER 2024-12-03 14:11 | Outpatient (AMB) | payer MEDICAID, SELFPAY ==
--- NOTE | 2024-12-03 14:18 | MHC.OFFVIS ---
Vital Signs 12/03/24 14:24 Height 5 ft 7 in Weight 133 lb BMI 20.8 BP 100/60 Intake Visit Reasons: IUD issues Intake Note: Patient complains of bleeding for 2 months with Mirena and what feels like labor pains Does not recall if she's ever had a pap smear, not one to go to the [facility] unless she really needs to. Regulatory Affairs Spec Required: No Information Interpreted: non-clinical & clinical Underwater Hunter Trapper: Underwater Hunter Trapper Present (Genet) Accompanied by: Self / Same As Patient Allergies No Known Allergies (No Known Allergies*) Allergy (Verified 12/03/24 14:23) Is last menstrual period known: No (mirena) Post menopausal: No Patient : No HPI Comments Details: Presenting complaining of pelvic cramps over the last 3 days with no associated vaginal discharge or urinary symptoms , no fever or chills. The patient has been experiencing mild diarrhea associated with mild nausea over the last 3 days. The patient went to the emergency room 2 days ago where pelvic ultrasound was done showed the following: Uterus: The uterus is normal in size, measuring 8.4 x 4.5 x 6.0 cm. Myometrium has a normal echotexture. No fibroids are identified. Endometrium: The endometrial stripe is obscured by the presence of an IUD which appears in appropriate position. Right ovary: The right ovary measures 4.7 x 3.3 x 3.5 cm. There is a 3.0 x 3.1 x 2.7 cm right ovarian cyst. Left ovary: The left ovary measures 2.7 x 2.0 x 2.6 cm. The left ovary is normal in size and echotexture. Pelvic fluid: none. [facility] Medical History No known health problems Social History (Updated 12/03/24 @ 14:21 by Genet Martines MA) Household Members: Spouse Substance Use Type: Marijuana Current occupational status: employed Current occupation: Director Of [employer] Female Reproductive History Menstrual Age of Menarche: 10 control method: progestin IUCD (Mirena ) Total pregnancies: 1 Full term: 1 History of abnormal pap smear: No Review of Systems Const All systems reviewed & are unremarkable except as noted in HPI and below Physical Exam Vital Signs: Last Vital Signs BP 100/60 12/03/24 14:24 BMI result Body Mass Index 20.8 General: Yes no CVA tenderness External Female Exam: normal external appearance and normal appearance of the urethra Speculum Exam - Vagina: normal appearance of the vagina, normal palpation, no lesions and no masses Speculum Exam - Cervix: normal appearance of the cervix, normal palpation, no lesions, no masses, nontender and Other cervical findings present (IUD thread in place) Bimanual exam- vagina & uterus: normal bimanual exam, normal palpation, uterine size normal, normal palpation, uterine shape normal, No Cervical tenderness present and non-tender Bimanual Exam- Adnexa, other: normal adnexae Back/Spine/Pelvis Back: no CVA tenderness Results AMB Test Urine AMB Test Urine Negative Last Edit by Tierra Jacob CMA on 12/03/24 14:30 Assessment & Plan Assessment & Plan (1) Pelvic cramping: Comment: With Mirena IUD Code(s): R10.2 - Pelvic and perineal pain Category: Medical Plan: UPT done in the office was negative GC/CT with BV panel collected Discussed with the patient the negative test, negative pelvic exam with no cervical motion tenderness, uterine, or adnexal tenderness, IUD in appropriate position by ultrasound as of 2 days ago. Instructions given the patient to call her PCP to manage gastroenteritis, if gastroenteritis resolves and pelvic pain persist will treat accordingly. Instructions given the patient to schedule a follow-up appointment in 2 weeks (2) Microscopic hematuria: Code(s): R31.29 - Other microscopic hematuria Category: Medical Plan: Urine dip showed microscopic hematuria, urine culture sent. Will repeat urine dip in 2 weeks. Discussed with the patient the possible causes of microscopic hematuria including but not limited to: interstitial cystitis, polyps, stones, masses, urethral inflammatory processes and others. If Urine Culture is negative and repeat urine dip in 2 weeks shows persistent microscopic hematuria, will proceed with CT abdomen/pelvis and urology referral. Instructions given the patient to schedule a 2 week urine dip follow-up appointment. All questions answered and the patient verbalized understanding. Orders: Orders CT NG by PCR Vag/Cerv Today N89.8 - Other specified noninflammatory disorders of vagina, R31.29 - Other microscopic hematuria AMB HCG Urine Test Today Z32.02 - Encounter for test, result negative Bacterial Vaginosis Panel Today N89.8 - Other specified noninflammatory disorders of vagina, R31.29 - Other microscopic hematuria Urine Culture Today N89.8 - Other specified noninflammatory disorders of vagina, R31.29 - Other microscopic hematuria Medications: Refilled ibuprofen 400 mg PO Q6H PRN 14 tabs 0RF pain Discontinued valacyclovir (Valtrex) Discontinued Reason: Patient Completed Course 1,000 mg PO BID 20 tabs 0RF metronidazole (Flagyl) Discontinued Reason: Patient Completed Course 500 mg PO BID 14 tabs 0RF fluconazole (Diflucan) Discontinued Reason: Patient Completed Course 150 mg PO Q3D 2 tabs 0RF ibuprofen Discontinued Reason: Patient Completed Course 600 mg PO Q6H PRN 20 tabs 0RF pain silver sulfadiazine 1% (Silvadene) apply a 1.5 mm thickness Discontinued Reason: Patient Completed Course 1 appl topical BID 7 days 50 grams 0RF doxycycline hyclate Discontinued Reason: Patient Completed Course 100 mg PO BID 7 days 14 caps 0RF Coding Level of Care Code New Pt Level 3 (35415) Diagnoses Pelvic cramping R10.2 Microscopic hematuria R31.29
[2024-12-03 14:24] VITALS: BP 100/60; BMI 20.8
--- OUTSIDE RECORDS SUMMARY | 2024-12-03 17:12 | XMS_ITS | Encounter Summary ---
Author Organization [employer] Address [address] [place] [address] Care Team Providers Care Sand Car Worker Name Role Phone Skip Keen Primary Care Provider Unavail able Lauren Lora MD Primary Care Provide r Adele Alvarez NP Primary Care Provider [phone] Reason for Visit * Reason Onset Date Comments triage 06/07/2022 Encounter Details Date Type Department Care Team ([facility] st Contact Info) Description 06/07/2022 Telephone [facility] MEDICINE [address] [place] [address] Skip Keen AGNP triage Social History Tobacco [...] symptoms. Pt is advised to come to [facility] to be seen . [facility] doesn't want [...] on filedocumented in this encounter Care Teams Sand Car Worker Relationship Specialty Start Date End Date Skip Keen AGNP PCP - General Family Medicine 03/16/22 02/17/23 Lauren Lora MD [address] [place] [address] PCP - General Internal Medicine 02/18/23 06/30/23 Adele Alvarez NP [address] [place] [address] PCP - General Family Medicine 07/05/23 05/31/24 documented as of this encounter
== END 2024-12-03 14:47 | disposition home or self-care (01) ==
LOC: HO.HWS 14:11
PROVIDERS: Visit Provider Obstetrics & Gynecology
DX: R10.2 Pelvic and perineal pain (principal); R31.29 Other microscopic hematuria; Z32.02 Encounter for pregnancy test, result negative
CPT/HCPCS: 99203

== ENCOUNTER 2024-12-03 14:11 | Outpatient (REF) | payer MEDICAID, SELFPAY ==
[2024-12-03 18:25] LABS: Bacterial Vaginosis PCR POSITIVE (Negative); Candida Group PCR NOT DETECTED (Not Detect); Candida glab krusei PCR NOT DETECTED (Not Detect); Trichomonas vaginalis PCR NOT DETECTED (Not Detect)
[2024-12-03 18:57] LABS: CT PCR NOT DETECTED (Not Detect.); NG PCR NOT DETECTED (Not Detect.)
== END 2024-12-03 14:12 | disposition home or self-care (01) ==
LOC: HO.LNP 14:11
PROVIDERS: Visit Provider Obstetrics & Gynecology
DX: R31.29 Other microscopic hematuria (principal); N89.8 Other specified noninflammatory disorders of vagina; R10.2 Pelvic and perineal pain; Z97.5 Presence of (intrauterine) contraceptive device
CPT/HCPCS: 81025; 81515; 87086; 87491; 87591; 99202

== ENCOUNTER 2024-12-18 09:31 | Outpatient (AMB) | payer MEDICAID, SELFPAY ==
--- OUTSIDE RECORDS SUMMARY | 2024-12-18 09:47 | XMS_ITS | Encounter Summary ---
Author Organization [employer] Address [address] [place] [address] Care Team Providers Care Border Machine Operator Name Role Phone Skip Keen Primary Care Provider Unavail able Lauren Lora MD Primary Care Provide r Adele Alvarez NP Primary Care Provider [phone] Reason for Visit * Reason Onset Date Comments triage 06/07/2022 Encounter Details Date Type Department Care Team ([facility] st Contact Info) Description 06/07/2022 Telephone [facility] MEDICINE [address] [place] [address] Skip Keen AGNP triage Social History Tobacco [...] symptoms. Pt is advised to come to [facility] to be seen . [facility] doesn't want [...] on filedocumented in this encounter Care Teams Border Machine Operator Relationship Specialty Start Date End Date Skip Keen AGNP PCP - General Family Medicine 03/16/22 02/17/23 Lauren Lora MD [address] [place] [address] PCP - General Internal Medicine 02/18/23 06/30/23 Adele Alvarez NP [address] [place] [address] PCP - General Family Medicine 07/05/23 05/31/24 documented as of this encounter
[2024-12-18 09:50] VITALS: BMI 20.8
--- NOTE | 2024-12-18 09:50 | A.OFFVIS_ITS ---
Vital Signs 12/18/24 09:50 Height 5 ft 7 in Weight 133 lb BMI 20.8 Intake Visit Reasons: [address] Dwyer Allergies No Known Allergies (No Known Allergies*) Allergy (Verified 12/03/24 14:23) HPI Comments Details: Presenting for follow-up. GC/CT was negative, urine dip last visit was positive for microscopic hematuria, urine culture was negative BV panel was positive for BV, the patient was treated with metronidazole PFSH Medical History No known health problems Social History (Updated 12/03/24 @ 14:21 by Genet Martines MA) Household Members: Spouse Substance Use Type: Marijuana Current occupational status: employed Current occupation: Central Communications Specialist Female Reproductive History Menstrual Age of Menarche: 10 Review of Systems Const All systems reviewed & are unremarkable except as noted in HPI and below Reports as per HPI and Reports no additional complaints GI Reports no additional complaints Reports no additional complaints Physical Exam Vital Signs: BMI result Body Mass Index 20.8 Assessment & Plan Assessment & Plan (1) Microscopic hematuria: Code(s): R31.29 - Other microscopic hematuria Category: Medical Plan: Repeat urine dip showed persistent microscopic hematuria. Will order CT scan of abdomen and pelvis and refer to urology for further management. All questions answered, the patient verbalized understanding Orders: Orders CT abdomen pelvis wo/w IV con Today R31.29 - Other microscopic hematuria Referrals Urology Referral R31.29 - Other microscopic hematuria Coding Level of Care Code Est Pt Level 3 (17353) Diagnoses Microscopic hematuria R31.29
== END 2024-12-18 10:27 | disposition home or self-care (01) ==
LOC: HO.HWS 09:32
PROVIDERS: Visit Provider Obstetrics & Gynecology
DX: R31.29 Other microscopic hematuria (principal)
CPT/HCPCS: 99213

== ENCOUNTER → 2024-12-18 09:31 | Outpatient (BNVA) | payer MEDICAID, SELFPAY | PROVIDERS: Visit Provider Obstetrics & Gynecology | DX: R31.29 Other microscopic hematuria (principal) | CPT/HCPCS: 99212 ==

== ENCOUNTER 2025-02-04 13:06 | Outpatient (REF) | payer MEDICAID, SELFPAY ==
--- NOTE | ~2025-02-04 | CT_ITS ---
EXAMINATION: CT ABDOMEN AND PELVIS WITHOUT AND WITH CONTRAST CLINICAL INFORMATION: Microscopic hematuria. COMPARISON: March 25, 2018. TECHNIQUE: Multidetector volumetric imaging was performed of the abdomen and pelvis before and after the IV administration of 85 mL of Omnipaque 350 strength intravenous contrast. Sagittal and coronal reformatted images were obtained on the technologist's workstation. No reported immediate complications. This CT examination was performed using dose optimization techniques as appropriate, variously including the following: *Automated exposure control *Adjustment of mA and/or kV according to patient size (this includes techniques or standardized protocols for targeted exams where dose is matched to indication/reason for exam; i.e. extremities or head) *Use of iterative reconstruction technique. DLP: 594 mGy centimeter. FINDINGS: LUNG BASES: No gross acute airspace disease or discrete nodules in the limited [id number]. LIVER, GALLBLADDER, AND BILIARY TREE: Liver measures 15 cm. No gross mass. Main portal veins and hepatic veins are patent. No intrahepatic biliary ductal dilatation. Gallbladder is contracted. No pericholecystic fluid collection or gallbladder wall thickening. Common bile duct measures 3 mm. PANCREAS: No focal lesion. No peripancreatic fluid collection. No main pancreatic ductal dilatation. SPLEEN: 10 cm. No focal lesion. ADRENAL GLANDS: No nodular lesion. KIDNEYS AND URETERS: No hydronephrosis. No nephrolithiasis. No gross renal mass. Normal urinary excretion into the collecting system. BLADDER: Fluid-filled. No gross wall thickening. GASTROINTESTINAL TRACT: Appendix is normal. Stool within the large intestine mostly in the rectosigmoid colon. No intestinal obstruction pattern. No intestinal wall thickening. No pneumatosis intestinalis. No ascites. No pneumoperitoneum. No peripheral enhancing fluid collections in the peritoneal cavity.. ABDOMINAL WALL: No gross umbilical hernia. LYMPH NODES: No mesenteric or retroperitoneal lymphadenopathy. Mild prominent inguinal lymph nodes. VASCULAR: No aneurysm or dissection, abdominal aorta. No gross ossified plaques. PELVIC VISCERA: T-shaped contraceptive device. Probable small nabothian cysts in the cervix. OSSEOUS STRUCTURES: No acute fracture or listhesis. Bony pelvis is intact. No lytic or blastic lesions. CT/CT abdomen pelvis wo/w IV con IMPRESSION: No hydronephrosis or nephrolithiasis or gross renal mass. Fleischner guidelines were followed. Electronically signed by: Van Palmer MD 02/04/2025 02:35 PM EDT
--- OUTSIDE RECORDS SUMMARY | 2025-02-04 13:44 | XMS_ITS | Clinical Summary ---
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 Marijuana use 11/29/2023 Maternal varicella, non-immune 11/29/2023 11/29/2023 Reduced visual acuity 04/08/2017 Acne 04/09/2014 Immunizations Immunization Administration Dates Next Due DTaP 02/08/2006, 3,08/18/2001,09/23,2000,2000 HPV 9-Valent 12/09/2015 HPV, Quadrivalent 04/09/2014,12/12/2012 Hep A, ped/adol, 2 dose 12/09/2015,04/09/2014 Hep B, Adolescent or Pediatric 2000,1999,2000 Hep B, Unspecified 2000 HiB, unspecified 05/29/2001,2000, 1 Hib (HbOC) 05/10/2001, 1,2000,05/10 IPV 02/08/2006, 4,08/18/2001,07/25,2000,2000,2000 Influenza injectable quadriv alent preservative free 05/09/2018,04/11/2016,04/09/2014 Influenza, IIV3, injectable 03/20/2023, 1,04/27/2010 Influenza, Split (incl. fernando fied surface antigen) 04/30/2013 MMR 09/28/2004,05/29/2001,05/10/2001 Meningococcal MCV4P [id number]-135 04/08/2017,12/13/19 13 Pneumococcal Conjugate PCV 7 05/10/2001, 2000,2000,05/10 Pneumococcal, Unspecified 05/29/2001,,2000,05/10 Tdap 04/11/2023,01/31/2021,12/12/2012 Varicella 09/20/2008,07/29/2002,08/18/2001 Social History Tobacco Use Types Packs/Day Years Used Date Smoking Tobacco: Never Smokeless Tobacco: Never Tobacco Cessation:Counseling Given: Not Answered Alcohol Use Standard Drinks/Week Comments Yes 0 (1 standard drink = 0.6 oz pur e alcohol) Housing Stability Answer Date Recorded What is your housing situation today? I have [place] 07/15/[address] you li ve. Do you have problems with any of the following? None of the above 07/15/2023 Food Insecurity Answer Date Recorded Within the past 12 months, y ou worried that your food would run out before you got money to buy more: Never True 07/15/2023 Within the past 12 months,th e food you bought just didn't last and you didn't have enough money to get more: Never True 10/2023 Transportation Answer Date Recorded In the past 12 months, has l ack of transportation kept you from medical appts, meetings, work or from getting things needed for daily living? No 07/15/2023 Utilities Answer Date Recorded In the past 12 months, has t he electric, gas, oil or water company threatened to shut off services in your home? No 07/15/2023 Comments Unknown Sex and Gender Information Value Date Recorded Sex Assigned at Female 04/09/2022 10:18 AM EDT Legal Sex Female 10:18 AM EDT Gender Identity Female 04/09/2022 10:18 AM EDT Sexual Orientation Straight 04/09/2022 10 :18 AM EDT Last Filed Vital Signs Vital Sign Reading Time Taken Comments Blood Pressure 100/70 02/27/2023 7:03 PM EDT Pulse 92 02/27/2023 7:03 PM EDT Temperature 36.8 C (98.3 F) 02/27/2023 7:03 PM EDT Respiratory Rate 20 02/27/2023 7:03 PM EDT Oxygen Saturation 97% 02/27/2023 7:03 PM EDT Inhaled Oxygen Concentration - - Weight 65.8 kg (145 lb) 02/27/2023 7:03 PM EDT Height 170.2 cm (5' 7 ) 02/27/2023 7:03 PM EDT Body Mass Index 22.71 02/27/2023 7:03 PM EDT Plan of Treatment Health Maintenance Due Date Last Done Comments Depression Screening 2000 Disability Screening 2000 Alcohol/Substance Use Screening 2012 Family Planning (PISQ) 2015 COVID-19 Vaccine ( season) 2024 12/26/2021, 11/28/2021 Tobacco Screening 02/28/2024 02/27/2023 SDOH Screening 08/29/2024 08/30/2023 Influenza Vaccine (#1) 2025 , 05/09/2018, 04/11/2016, Additional history exists Pap Smear 12/18/2025 12/18/2022 DTaP/Tdap/Td Vaccines (9 - Td or Tdap) 04/11/2033 04/11/2023, 01/31/2021, 12/12/2012, Additional history exists Zoster Vaccines (1 of 2) 2050 RSV Patients and Patients Aged 60 years or older (1 - 1-dose 75+ series) 2075 Hepatitis B Vaccines Completed 2000, 2000, 2000, Additional history exists HIB Vaccines Completed 05/29/2001, 06/2000, 2000, Additional history exists Pneumococcal Vaccine: Pediatrics (0 to 5 Years) and At-Risk Patients (6 to 49) Years Aged Out 05/29/2001, 05/10/2001, 2000, Additional history exists No longer eligible based on patient's age to complete this topic IPV Vaccines Completed 02/08/2006, 07/2003, 08/18/2001, Additional history exists HPV Vaccines Completed 12/09/2015, 03/12, 12/12/2012 Hepatitis A Vaccines Completed 12/09/2015, 04/09/20 14 Meningococcal Vaccine Completed 04/08/2017, 013 HIV Screening Completed 04/13/2024 Hepatitis C Screening Completed 04/13/2024 Meningococcal B Vaccine Aged Out No l onger eligible based on patient's age to complete this topic RSV under 20 months Aged Out No longe r eligible based on patient's age to complete this topic Rotavirus Vaccines Aged Out No longer eligible based on patient's age to complete this topic Procedures Procedure Name Priority Date/Time Associated Diagnosis Comments HEPATITIS C ANTIBODY ([facility]) Routine 04/13/2024 HIV ANTIBODY/ANTIGEN ([facility]) Routine 04/13/2024 HM PAP/HPV Routine 12/18/2022 from Last 3 Months or Most Recently Relevant to Health Maintenance Results * Hepatitis C Antibody ([place] [facility]) (04/13/2024) Hepatitis C Ab Nonreactive Blood [facility] Provider LAB BLOOD ORDERABLES Edit ed Result - Final * HIV Ab/Ag ([facility]) (04/13/2024) HIV Ag/Ab Nonreactive Blood [facility] Provider LAB BLOOD ORDERABLES Edit ed Result - Final * Hm Pap Smear (12/18/2022) Pap Negative for intraephithelial lesion or malignancy Negative for intraephithelial lesion or malignancy, Other [facility] Provider HEALTH MAINTENANCE Final Result from Last 3 Months or Most Recently Relevant to Health Maintenance Insurance [facility] C3
--- OUTSIDE RECORDS SUMMARY | 2025-02-04 13:44 | XMS_ITS | Encounter Summary ---
Author Organization [employer] Address [address] [facility] [address] [place] [address] Care Team Providers Care Rn New Graduate Name Role Phone Skip Keen Primary Care Provider Unavail able Lauren Lora MD Primary Care Provide r Adele Alvarez NP Primary Care Provider [phone] Reason for Visit * Reason Onset Date Comments triage 06/07/2022 Encounter Details Date Type Department Care Team ([facility] st Contact Info) Description 06/07/2022 Telephone [facility] [address] [place] [address] Skip Keen AGNP triage Social History Tobacco [...] symptoms. Pt is advised to come to [facility] to be seen . [facility] doesn't want [...] on filedocumented in this encounter Care Teams Rn New Graduate Relationship Specialty Start Date End Date Skip Keen AGNP PCP - General Family Medicine 03/16/22 02/17/23 Lauren Lora MD [address] [place] [address] PCP - General Internal Medicine 02/18/23 06/30/23 Adele Alvarez NP [address] [place] [address] PCP - General Family Medicine 07/05/23 05/31/24 documented as of this encounter
--- OUTSIDE RECORDS SUMMARY | 2025-02-04 13:44 | XMS_ITS | Encounter Summary ---
Author Organization [employer] Address [address] [place] [address] [address] [place] [address] Care Team Providers Care Salad Counter Attendant Name Role Phone Skip Keen Primary Care Provider Unavail able Lauren Lora MD Primary Care Provide r Adele Alvarez NP Primary Care Provider [phone] Encounter Details Date Type Department Care Team (Late st Contact Info) Description 07/05/2022 Telephone [facility] [address] [place], [place] [phone] Skip Keen AGNP Social History Tobacco Use Types Packs/Day Years [...] suspected to have Coronavirus/COVID-19? No / Unsure 07/03/2022 4:09 PM EST documented as of this encounter Plan of Treatment Not on file documented as of this encounter Visit Diagnoses Not on filedocumented in this encounter Care Teams Salad Counter Attendant Relationship Specialty Start Date End Date Skip Keen AGNP PCP - General Family Medicine 03/16/22 02/17/23 Lauren Lora MD [address] [place], [place] [id number] PCP - General Internal Medicine 02/18/23 06/30/23 Adele Alvarez NP [address] [place] [id number] PCP - General Family Medicine 07/05/23 05/31/24 documented as of this encounter
[2025-02-04] MEDS: iohexoL 350 MG/ML 100 ML INFUS..BTL IV (13:59)
== END 2025-02-04 13:07 | disposition home or self-care (01) ==
LOC: HO.CT 13:06
PROVIDERS: Visit Provider Obstetrics & Gynecology
DX: R31.29 Other microscopic hematuria (principal)
CPT/HCPCS: 74178; Q9967

== ENCOUNTER → 2025-02-04 13:08 | Outpatient (BNV) | payer MEDICAID, SELFPAY | PROVIDERS: Visit Provider Radiology Diagnostic Radiology | DX: R31.29 Other microscopic hematuria (principal) | CPT/HCPCS: 74178 ==